=== PATIENT | female | born 1955 | race African-American/Black ===

== ENCOUNTER 2020-08-31 13:23 | Inpatient (IN) | payer MEDICAID, OTHER ==
[~2020-08-31] VITALS: Ht 162.6 cm; Wt 72.6 kg
[~2020-08-31 13:23] MED LIST: UNK MEDS
[2020-08-31] MEDS ORDERED: PROPOFOL 10MG/ML 100ML 100 ML IV STA (13:27)
[2020-08-31] MEDS ORDERED: VANCOMYCIN 1 G PREMIX 200 ML IV ONE (13:30)
[2020-08-31] MEDS ORDERED: MEROPENEM 1,000 MG in SODIUM CHLORIDE 0.9% 100 ML IV ONE (13:30)
[2020-08-31] MEDS ORDERED: actos (13:59)
[2020-08-31] MEDS ORDERED: neurontin (13:59)
[2020-08-31] MEDS ORDERED: VECURONIUM BROMIDE 10 MG/VIAL IV ONE (15:00)
[2020-08-31] MEDS ORDERED: DEXAMETHASONE 10 MG/ML VIAL IV ONE (15:00)
[2020-08-31] MEDS ORDERED: ETOMIDATE 2MG/ML 10ML VIAL IV ONE (15:00)
[2020-08-31] MEDS ORDERED: SODIUM CHLORIDE 0.9% 10ML VIAL ONE (15:00)
[2020-08-31 15:36] LABS: BASOPHILS % 0.7 % (0.0-2.0); EOSINOPHILS % 0.1 % (0.0-5.0); HEMOGLOBIN. 9.7 g/dL (12.0-16.0); LYMPHOCYTES % 16.2 % (20.0-50.0); MEAN CORPUSCULAR HEMOGLOBIN 24.7 pg (28.0-32.0); MEAN CORPUSCULAR VOLUME 76.4 fL (81.0-99.0); MEAN PLATELET VOLUME 8.5 fl (7.4-10.4); MONOCYTES % 8.6 % (2.0-8.0); NEUTROPHILS % 74.4 % (40.0-76.0); PLATELET 247 x1000/uL (130-400); RED BLOOD CELL COUNT 3.93 mill/uL (4.2-5.4); RED CELL DISTRIBUTION WIDTH 19.5 % (11.6-14.6)
[2020-08-31 15:41] LABS: CHLORIDE 103 mEq/L (98-107)
[2020-08-31 15:56] LABS: D-DIMER 4.9 mg/L FEU (<0.50); PARTIAL THROMBOPLASTIN TIME 28.3 sec (23.4-31.0); PROTHROMBIN TIME 10.9 sec (9.6-11.0)
[2020-08-31 16:20] LABS: CLARITY URINE CLOUDY (CLEAR); COLOR URINE YELLOW (YELLOW); KETONES URINE NEGATIVE (NEGATIVE); LEUKOCYTE ESTERASE URINE 3+ (NEGATIVE); NITRITE URINE NEGATIVE (NEGATIVE); OCCULT BLOOD URINE TRACE (NEGATIVE); PROTEIN URINE 1+ (NEGATIVE); SPECIFIC GRAVITY URINE 1.011 (1.005-1.030); UROBILINOGEN URINE 0.2 E.U./dL (0.2-1.0)
[2020-08-31] MEDS ORDERED: ONDANSETRON HCL 4MG/2ML INJ IV PRN (16:45)
[2020-08-31] MEDS ORDERED: MORPHINE SULFATE 2 MG/ML CPJ (NOT FOR IM USE) IV PRN (16:45)
[2020-08-31] MEDS ORDERED: ACETAMINOPHEN 650MG SUPP PR PRN ×2 (16:45)
[2020-08-31] MEDS ORDERED: DIPHENHYDRAMINE 50MG/ML VIAL IV PRN (16:45)
[2020-08-31] MEDS ORDERED: HEPARIN 25,000 UNITS PREMIX 250 ML IV STA (17:14)
[2020-08-31] MEDS ORDERED: HEPARIN 5000 UNITS/ML VIAL IV ONE (17:15)
[2020-08-31] MEDS ORDERED: HEPARIN 60 UNITS/KG BOLUS IV SCH (18:45)
[2020-08-31] MEDS ORDERED: HEPARIN BOLUS PRN aPTT 30-44 IV (18:45)
[2020-08-31] MEDS ORDERED: HEPARIN BOLUS PRN aPTT <30 IV (18:45)
[2020-08-31] MEDS ORDERED: HEPARIN 25,000 UNITS PREMIX 250 ML IV SCH (18:45)
[2020-08-31] MEDS ORDERED: ASPIRIN 300MG SUPP PR ONE (20:00)
[2020-08-31] MEDS ORDERED: IOHEXOL-300 100 ML BOTTLE ONE (20:53)
[2020-08-31] MEDS ORDERED: LIDOCAINE HCL 1% 20ML VIAL (Pyxis) INJ ONE (20:53)
[2020-08-31] MEDS ORDERED: PROPOFOL 10MG/ML 100ML 100 ML IV ONE (21:18)
[2020-08-31] MEDS ORDERED: IODIXANOL 320MG/ML 100 ML BOTTLE IV ONE ×2 (21:53→22:31)
[2020-08-31] MEDS ORDERED: NITROGLYCERIN 50MCG/ML 10ML VIAL (CATH LAB) IV ONE (22:00)
[2020-08-31] MEDS ORDERED: HEPARIN SODIUM 1,000 UNIT/1ML VIAL IV ONE (22:00)
[2020-08-31] MEDS ORDERED: NICARDIPINE 100MCG/ML 10ML VIAL (CATH LAB) IV ONE (22:00)
[2020-08-31] MEDS ORDERED: TICAGRELOR 90 MG TABLET PO ONE (22:38)
[2020-08-31] MEDS ORDERED: ASPIRIN 325MG EC TABLET PO ONE (22:39)
[2020-08-31] MEDS: SODIUM CHLORIDE 0.9% INJ 3ML FLUSH IVF SCH (23:30)
[2020-08-31] MEDS ORDERED: ATROPINE SULFATE 1MG/10ML SYR IV PRN (23:45)
[2020-08-31] MEDS ORDERED: ASPIRIN 81MG TABLET PO ONE (23:45)
[2020-08-31] MEDS ORDERED: ACETAMINOPHEN 325MG TABLET PO PRN (23:45)
[2020-09-01] MEDS ORDERED: PROPOFOL 10MG/ML 100ML 100 ML IV PRN ×2 (02:45→14:00)
[2020-09-01 02:48] LABS: BASOPHILS % 0.4 % (0.0-2.0); HEMATOCRIT. 24.5 % (36.0-48.0); HEMOGLOBIN. 7.9 g/dL (12.0-16.0); LYMPHOCYTES % 16.6 % (20.0-50.0); MEAN CORPUSCULAR HEMOGLOBIN 25.1 pg (28.0-32.0); MEAN CORPUSCULAR VOLUME 77.8 fL (81.0-99.0); MONOCYTES % 4.6 % (2.0-8.0); NEUTROPHILS % 78.4 % (40.0-76.0); PLATELET 210 x1000/uL (130-400); RED BLOOD CELL COUNT 3.15 mill/uL (4.2-5.4); RED CELL DISTRIBUTION WIDTH 19.2 % (11.6-14.6)
[2020-09-01 02:56] LABS: CHLORIDE 103 mEq/L (98-107)
[2020-09-01 03:02] LABS: PHOSPHORUS 3.8 mg/dL (2.5-4.9)
[2020-09-01 03:19] LABS: INR 1.2; PROTHROMBIN TIME 12.7 sec (9.6-11.0)
[2020-09-01 03:29] LABS: PARTIAL THROMBOPLASTIN TIME > 200.0 sec (23.4-31.0)
[2020-09-01] MEDS ORDERED: PANTOPRAZOLE 40MG DR TABLET PO NR (04:00)
[2020-09-01] MEDS ORDERED: CARVEDILOL 6.25 MG TABLET PO NR (04:00)
[2020-09-01 05:03] LABS: BASOPHILS % 0.9 % (0.0-2.0); HEMATOCRIT. 28.1 % (36.0-48.0); HEMOGLOBIN. 9.3 g/dL (12.0-16.0); LYMPHOCYTES % 18.5 % (20.0-50.0); MEAN CORPUSCULAR HEMOGLOBIN 25.6 pg (28.0-32.0); MEAN CORPUSCULAR VOLUME 77.4 fL (81.0-99.0); MEAN PLATELET VOLUME 8.7 fl (7.4-10.4); MONOCYTES % 5.6 % (2.0-8.0); PLATELET 268 x1000/uL (130-400); RED BLOOD CELL COUNT 3.64 mill/uL (4.2-5.4); RED CELL DISTRIBUTION WIDTH 19.5 % (11.6-14.6)
[2020-09-01 05:17] LABS: PHOSPHORUS 4.3 mg/dL (2.5-4.9)
[2020-09-01 05:23] LABS: CREATINE KINASE MB FRACTION 21.1 ng/mL (0.5-3.6)
[2020-09-01] MEDS: SODIUM CHLORIDE 0.9% INJ 3ML FLUSH IVF SCH ×3 (05:39→22:39)
[2020-09-01] MEDS: NOREPINEPHRINE 8 MG in DEXTROSE 5% WATER 250 ML IV PRN (07:01)
[2020-09-01] MEDS ORDERED: PANTOPRAZOLE SODIUM 40 MG/VIAL IV SCH (09:00)
[2020-09-01] MEDS: ASPIRIN 81MG TABLET PO SCH (09:14)
[2020-09-01] MEDS: TICAGRELOR 90 MG TABLET PO SCH ×2 (09:44→22:00)
[2020-09-01] MEDS: FUROSEMIDE 20MG TABLET PO SCH ×2 (09:45→22:00)
[2020-09-01 12:36] LABS: BG BASE EXCESS -1.7 mmol/L (-2.0-2.0); BG CARBOXYHEMOGLOBIN 0.3 % (0.5-1.5); BG DEOXYHEMOGLOBIN 0.5 % (0.0-5.0); BG HCO3 ACT 22.1 mmol/L (22.0-26.0); BG METHEMOGLOBIN 0.3 % (0.0-1.5); BG OXYGEN SATURATION 99.5 % (92.0-98.5); BG OXYHEMOGLOBIN 98.9 % (94.0-97.0); BG PCO2 33.6 mmHg (35.0-45.0); BG PH 7.435 (7.350-7.450); BG PO2 341.5 mmHg (75.0-100.0); BG SAMPLE SITE RIGHT RADIAL; BG TOTAL HEMOGLOBIN 9.3 g/dL (12.0-18.0); BG VENT MODE VENT- PRVC
[2020-09-01] MEDS ORDERED: FENTANYL CITRATE/PF 2,500 MCG in SODIUM CHLORIDE 0.9% 200 ML IV PRN ×4 (14:00)
[2020-09-01] MEDS ORDERED: IPRATROPIUM/ALBUTEROL 0.5-3(2.5)MG/3ML NEB HHN PRN (18:00)
[2020-09-01 20:39] LABS: CREATINE KINASE MB FRACTION 12.8 ng/mL (0.5-3.6)
[2020-09-01] MEDS: IPRATROPIUM/ALBUTEROL 0.5-3(2.5)MG/3ML NEB HHN SCH (21:15)
[2020-09-01] MEDS: ATORVASTATIN CALCIUM 40MG TABLET PO SCH (22:00)
[2020-09-02] MEDS: IPRATROPIUM/ALBUTEROL 0.5-3(2.5)MG/3ML NEB HHN SCH ×3 (02:33→21:06)
[2020-09-02] MEDS: NOREPINEPHRINE 8 MG in DEXTROSE 5% WATER 250 ML IV PRN (04:23)
[2020-09-02 09:02] LABS: CREATINE KINASE MB FRACTION 12.4 ng/mL (0.5-3.6)
[2020-09-02 13:51] LABS: BG BASE EXCESS -2.4 mmol/L (-2.0-2.0); BG CARBOXYHEMOGLOBIN 0.3 % (0.5-1.5); BG DEOXYHEMOGLOBIN 5.2 % (0.0-5.0); BG FRACTION INSPIRED OXYGEN 50; BG HCO3 ACT 22.2 mmol/L (22.0-26.0); BG OXYGEN SATURATION 94.8 % (92.0-98.5); BG OXYHEMOGLOBIN 94.5 % (94.0-97.0); BG PCO2 37.3 mmHg (35.0-45.0); BG PH 7.392 (7.350-7.450); BG PO2 78.3 mmHg (75.0-100.0); BG SAMPLE SITE RIGHT RADIAL; BG TOTAL HEMOGLOBIN 9.7 g/dL (12.0-18.0); BG VENT MODE VENT - CPAP
[2020-09-02] MEDS ORDERED: LEVOFLOXACIN 500MG PREMIX 100 ML IV NR (14:00)
[2020-09-02] MEDS ORDERED: DEXTROSE 50% WATER 50ML SYRINGE IV PRN (15:45)
[2020-09-02] MEDS: BLOOD SUGAR DIAGNOSTIC STRIP TEST SCH ×2 (16:30→20:13)
[2020-09-02] MEDS: BENAZEPRIL 5MG TABLET PO SCH (17:00)
[2020-09-02] MEDS: INSULIN LISPRO 100 UNITS/ML SUBCUT SCH ×2 (17:40→21:00)
[2020-09-02] MEDS: METOPROLOL TARTRATE 25MG TABLET PO SCH (20:13)
[2020-09-02] MEDS: ATORVASTATIN CALCIUM 40MG TABLET PO SCH (20:59)
[2020-09-02] MEDS ORDERED: ZOLPIDEM TARTRATE 5MG TABLET PO PRN (21:00)
[2020-09-02] MEDS: INSULIN GLARGINE UD 100 UNITS/ML SYR SUBCUT SCH (22:19)
[2020-09-03] MEDS: IPRATROPIUM/ALBUTEROL 0.5-3(2.5)MG/3ML NEB HHN SCH (02:53)
[2020-09-03] MEDS: OMEPRAZOLE 20MG CAPSULE EXTENDED RELEASE PO SCH (06:58)
[2020-09-03 12:00] VITALS: BP 111/50
[2020-09-03] MEDS ORDERED: LEVOFLOXACIN 250MG PREMIX 50 ML IV SCH (12:00)
[2020-09-03] MEDS: LEVOFLOXACIN 250MG TABLET PO SCH (13:07)
[2020-09-03] MEDS: FUROSEMIDE 40MG/4ML VIAL IVP SCH ×2 (13:07→22:08)
[2020-09-03] MEDS: INSULIN LISPRO 100 UNITS/ML SUBCUT SCH ×3 (13:08→22:05)
[2020-09-03] MEDS: BLOOD SUGAR DIAGNOSTIC STRIP TEST SCH ×3 (13:08→20:59)
[2020-09-03] MEDS: SODIUM CHLORIDE 0.9% INJ 3ML FLUSH IVF SCH ×3 (14:00→22:06)
[2020-09-03 16:00] VITALS: BP 108/53
[2020-09-03] MEDS: BENAZEPRIL 5MG TABLET PO SCH (17:00)
[2020-09-03 20:00] VITALS: BP 117/48
[2020-09-03] MEDS: ATORVASTATIN CALCIUM 40MG TABLET PO SCH (21:59)
[2020-09-03] MEDS: METOPROLOL TARTRATE 25MG TABLET PO SCH (22:00)
[2020-09-03] MEDS: TICAGRELOR 90 MG TABLET PO SCH ×2 (22:04→22:11)
[2020-09-03] MEDS: INSULIN GLARGINE UD 100 UNITS/ML SYR SUBCUT SCH (22:05)
[2020-09-04] VITALS: BP 110/51
[2020-09-04 04:00] VITALS: BP 97/48
[2020-09-04] MEDS: SODIUM CHLORIDE 0.9% INJ 3ML FLUSH IVF SCH ×3 (06:20→22:00)
[2020-09-04] MEDS: OMEPRAZOLE 20MG CAPSULE EXTENDED RELEASE PO SCH (06:41)
[2020-09-04] MEDS: BLOOD SUGAR DIAGNOSTIC STRIP TEST SCH ×4 (07:28→20:57)
[2020-09-04] MEDS: INSULIN LISPRO 100 UNITS/ML SUBCUT SCH ×4 (07:32→21:21)
[2020-09-04 08:00] VITALS: BP 111/49
[2020-09-04] MEDS: BENAZEPRIL 5MG TABLET PO SCH ×2 (09:00→17:00)
[2020-09-04] MEDS: METOPROLOL TARTRATE 25MG TABLET PO SCH ×2 (09:00→22:32)
[2020-09-04] MEDS: ASPIRIN 81MG TABLET PO SCH ×2 (09:28→09:32)
[2020-09-04] MEDS: TICAGRELOR 90 MG TABLET PO SCH ×2 (09:32→22:32)
[2020-09-04] MEDS: ALBUTEROL 6.7GM HFA INHALER ORI SCH ×2 (12:00→18:20)
[2020-09-04] MEDS: LEVOFLOXACIN 250MG TABLET PO SCH (12:44)
[2020-09-04] MEDS: FUROSEMIDE 40MG/4ML VIAL IVP SCH ×2 (14:57→22:32)
[2020-09-04 16:00] VITALS: BP 112/48
[2020-09-04] MEDS ORDERED: MAGNESIUM 2 G PREMIX 50 ML IV NR (16:00)
[2020-09-04 20:00] VITALS: BP_SYST 118; BP_SYST 153; BP_DIAS 51; BP_DIAS 74
[2020-09-04] MEDS: INSULIN GLARGINE UD 100 UNITS/ML SYR SUBCUT SCH (22:09)
[2020-09-04] MEDS: ATORVASTATIN CALCIUM 40MG TABLET PO SCH (22:33)
[2020-09-05] VITALS: BP 112/45
[2020-09-05 04:00] VITALS: BP 94/44
[2020-09-05] MEDS: ALBUTEROL 6.7GM HFA INHALER ORI SCH ×5 (05:46→23:41)
[2020-09-05] MEDS: SODIUM CHLORIDE 0.9% INJ 3ML FLUSH IVF SCH ×3 (05:46→22:54)
[2020-09-05] MEDS: BLOOD SUGAR DIAGNOSTIC STRIP TEST SCH ×4 (05:46→21:24)
[2020-09-05] MEDS: FAMOTIDINE 20MG TABLET PO SCH (07:56)
[2020-09-05] MEDS: INSULIN LISPRO 100 UNITS/ML SUBCUT SCH ×4 (07:56→21:24)
[2020-09-05 08:00] VITALS: BP 112/54
[2020-09-05 08:37] LABS: PHOSPHORUS 3.6 mg/dL (2.5-4.9)
[2020-09-05] MEDS: METOPROLOL TARTRATE 25MG TABLET PO SCH (09:58)
[2020-09-05] MEDS: FUROSEMIDE 40MG/4ML VIAL IVP SCH (09:59)
[2020-09-05] MEDS: ASPIRIN 81MG TABLET PO SCH (09:59)
[2020-09-05] MEDS: BENAZEPRIL 5MG TABLET PO SCH ×3 (09:59→19:00)
[2020-09-05] MEDS: TICAGRELOR 90 MG TABLET PO SCH ×2 (09:59→21:23)
[2020-09-05] MEDS: LEVOFLOXACIN 250MG TABLET PO SCH (10:00)
[2020-09-05 12:00] VITALS: BP 100/51
[2020-09-05 16:00] VITALS: BP 117/51
[2020-09-05] MEDS ORDERED: POTASSIUM CHLORIDE 20MEQ TABLET SR PO NR (19:00)
[2020-09-05 20:00] VITALS: BP 105/45
[2020-09-05] MEDS: CARVEDILOL 3.125 MG TABLET PO SCH (21:00)
[2020-09-05] MEDS: ATORVASTATIN CALCIUM 40MG TABLET PO SCH (21:24)
[2020-09-05] MEDS: FUROSEMIDE 40MG TABLET PO SCH (21:24)
[2020-09-05] MEDS: INSULIN GLARGINE UD 100 UNITS/ML SYR SUBCUT SCH (22:54)
[2020-09-06] VITALS: BP 123/46
[2020-09-06 04:00] VITALS: BP 121/50
[2020-09-06] MEDS: SODIUM CHLORIDE 0.9% INJ 3ML FLUSH IVF SCH ×3 (05:40→22:29)
[2020-09-06] MEDS: ALBUTEROL 6.7GM HFA INHALER ORI SCH ×4 (05:40→23:24)
[2020-09-06] MEDS: BLOOD SUGAR DIAGNOSTIC STRIP TEST SCH ×4 (07:41→21:25)
[2020-09-06] MEDS: BENAZEPRIL 5MG TABLET PO SCH (09:00)
[2020-09-06] MEDS: CARVEDILOL 3.125 MG TABLET PO SCH ×2 (09:00→20:34)
[2020-09-06] MEDS: FUROSEMIDE 40MG TABLET PO SCH ×2 (10:03→21:25)
[2020-09-06] MEDS: TICAGRELOR 90 MG TABLET PO SCH ×2 (10:03→21:25)
[2020-09-06] MEDS: ASPIRIN 81MG TABLET PO SCH (10:03)
[2020-09-06] MEDS: FAMOTIDINE 20MG TABLET PO SCH (10:03)
[2020-09-06] MEDS: INSULIN LISPRO 100 UNITS/ML SUBCUT SCH ×4 (10:04→21:27)
[2020-09-06] MEDS: LEVOFLOXACIN 250MG TABLET PO SCH (10:05)
[2020-09-06 16:00] VITALS: BP 109/59
[2020-09-06 20:00] VITALS: BP 108/48
[2020-09-06] MEDS: ATORVASTATIN CALCIUM 40MG TABLET PO SCH (21:25)
[2020-09-06] MEDS ORDERED: INSULIN GLARGINE UD 100 UNITS/ML SYR SUBCUT SCH (22:00)
[2020-09-07] VITALS: BP 114/50
[2020-09-07 04:00] VITALS: BP 117/54
[2020-09-07] MEDS: ALBUTEROL 6.7GM HFA INHALER ORI SCH ×3 (05:39→18:03)
[2020-09-07] MEDS: SODIUM CHLORIDE 0.9% INJ 3ML FLUSH IVF SCH ×2 (05:39→14:52)
[2020-09-07] MEDS: BLOOD SUGAR DIAGNOSTIC STRIP TEST SCH ×4 (07:30→21:00)
[2020-09-07 08:00] VITALS: BP 111/58
[2020-09-07] MEDS: TICAGRELOR 90 MG TABLET PO SCH ×2 (09:00→10:35)
[2020-09-07] MEDS: FUROSEMIDE 40MG TABLET PO SCH (10:33)
[2020-09-07] MEDS: ASPIRIN 81MG TABLET PO SCH (10:33)
[2020-09-07] MEDS: BENAZEPRIL 5MG TABLET PO SCH (10:33)
[2020-09-07] MEDS: FAMOTIDINE 20MG TABLET PO SCH (10:33)
[2020-09-07] MEDS: CARVEDILOL 3.125 MG TABLET PO SCH (10:34)
[2020-09-07] MEDS: INSULIN LISPRO 100 UNITS/ML SUBCUT SCH ×3 (10:36→18:01)
[2020-09-07 12:00] VITALS: BP 109/46
[2020-09-07 16:00] VITALS: BP 102/54
[2020-09-07 20:00] VITALS: BP 122/55
[2020-09-07] MEDS ORDERED: INSULIN GLARGINE UD 100 UNITS/ML SYR SUBCUT SCH (22:00)
[2020-09-08] MEDS: FUROSEMIDE 40MG TABLET PO SCH ×2 (00:05→10:23)
[2020-09-08] MEDS: CARVEDILOL 3.125 MG TABLET PO SCH ×2 (00:06→10:22)
[2020-09-08] MEDS: TICAGRELOR 90 MG TABLET PO SCH ×2 (00:06→10:23)
[2020-09-08] MEDS: ATORVASTATIN CALCIUM 40MG TABLET PO SCH (00:06)
[2020-09-08] MEDS: INSULIN LISPRO 100 UNITS/ML SUBCUT SCH ×4 (00:11→17:33)
[2020-09-08] MEDS: SODIUM CHLORIDE 0.9% INJ 3ML FLUSH IVF SCH ×3 (00:12→12:38)
[2020-09-08] MEDS: ALBUTEROL 6.7GM HFA INHALER ORI SCH ×4 (01:44→17:34)
[2020-09-08] MEDS: BLOOD SUGAR DIAGNOSTIC STRIP TEST SCH ×3 (06:33→17:33)
[2020-09-08 08:30] VITALS: BP 132/54
[2020-09-08] MEDS: BENAZEPRIL 5MG TABLET PO SCH (10:22)
[2020-09-08] MEDS: ASPIRIN 81MG TABLET PO SCH (10:22)
[2020-09-08] MEDS: FAMOTIDINE 20MG TABLET PO SCH (10:22)
[2020-09-08 15:24] VITALS: BP 132/54
== END 2020-09-08 19:10 | DRG 710 ==
LOC: ER 13:23 → MICUSO 16:09 → 7WST 09-03 10:02 → 6WST 09-07 22:01
PROVIDERS: ADMIT Internal Medicine; ATTEND Internal Medicine
PROC: 5A1945Z Respiratory Ventilation, 24-96 Consecutive Hours (ICD-10-PCS; principal; 2020-08-31)
PROC: 0BH17EZ Insertion of Endotracheal Airway into Trachea, Via Natural or Artificial Opening (ICD-10-PCS; 2020-08-31)
PROC: 06HY33Z Insertion of Infusion Device into Lower Vein, Percutaneous Approach (ICD-10-PCS; 2020-08-31)
PROC: 4A023N7 Measurement of Cardiac Sampling and Pressure, Left Heart, Percutaneous Approach (ICD-10-PCS; 2020-08-31)
PROC: B2111ZZ Fluoroscopy of Multiple Coronary Arteries using Low Osmolar Contrast (ICD-10-PCS; 2020-08-31)
PROC: B2151ZZ Fluoroscopy of Left Heart using Low Osmolar Contrast (ICD-10-PCS; 2020-08-31)
PROC: 027035Z Dilation of Coronary Artery, One Artery with Two Drug-eluting Intraluminal Devices, Percutaneous Approach (ICD-10-PCS; 2020-08-31)
DX: A40.1 Sepsis due to streptococcus, group B (principal); I21.3 ST elevation (STEMI) myocardial infarction of unspecified site; U07.1 COVID-19; J96.01 Acute respiratory failure with hypoxia; I13.0 Hypertensive heart and chronic kidney disease with heart failure and stage 1 through stage 4 chronic kidney disease, or unspecified chronic kidney disease; I50.41 Acute combined systolic (congestive) and diastolic (congestive) heart failure; G93.41 Metabolic encephalopathy; D64.9 Anemia, unspecified; E11.22 Type 2 diabetes mellitus with diabetic chronic kidney disease; E78.5 Hyperlipidemia, unspecified; Z60.2 Problems related to living alone; N17.9 Acute kidney failure, unspecified; I25.10 Atherosclerotic heart disease of native coronary artery without angina pectoris; J12.82 Pneumonia due to coronavirus disease 2019; N18.9 Chronic kidney disease, unspecified; N39.0 Urinary tract infection, site not specified; Z87.891 Personal history of nicotine dependence; Z78.1 Physical restraint status; Z88.0 Allergy status to penicillin; Z79.899 Other long term (current) drug therapy
CPT/HCPCS: 31500; 36415; 36556; 36600; 71045; 71275; 80048; 80053; 81003; 82375; 82550; 82553; 82728; 82805; 82962; 83036; 83605; 83615; 83735; 83880; 84100; 84145; 84484; 85025; 85347; 85379; 85384; 86850; 86900; 87077; 87635; 92928; 93005; 93458; 93970; 99291; C1760; C1769; C1874 ×2; C1887; C1893; J1100; J1644; J1815; J1940; J1956; J2185; J2704; J3010; J3370; J3475; J3490; J7050; J7060; Q9967; C1725; J8499